=== PATIENT | female | born 1985 | race American Indian/Alaskan Native ===

== ENCOUNTER 2017-08-01 22:59 | Emergency (ER) | payer SELFPAY ==
[2017-08-01 23:46] VITALS: BP 113/73
--- NOTE | 2017-08-02 02:39 | Emergency Department Report ---
HPI - General Chief Complaint: Extremity Injury, Lower Time Seen by Provider: 08/02/17 02:26 - HPI HPI: Patient is a 31-year-old female with no prior medical history known to me who presents to ED complaining of left ankle swelling 2 days. Patient states yesterday she noticed her left ankle is swollen. Patient denies any trauma or injuries to the leg. Patient denies any ankle pain. Patient denies calf pain or difficulty walking. Patient's only states that ankle series appeared tight swelling. Patient states she is able to walk and has no loss of sensation to the ankle. She says she takes no medication and states she is not diabetic to her knowledge. She admits she is a nononsmoker. She denies fevers/chills/headache/blurred vision/chest pains or shortness of breath/dizziness. ED Past Medical Hx - Past Medical History Hx Hypertension: No Hx Congestive Heart Failure: No Hx Diabetes: No Hx Deep Vein Thrombosis: No Hx Renal Disease: No Hx Sickle Cell Disease: No Hx Seizures: No Hx Asthma: No Hx COPD: No Hx HIV: No - Surgical History Past Surgical History?: No - Social History Smoking Status: Never Smoker Substance Use Type: None - Medications Home Medications: Home Medications Medication Instructions Recorded Confirmed Last Taken Type Acetaminophen [Tylenol Arthritis] 650 mg PO TID #30 tablet.er 08/02/17 Unknown Rx ED Review of Systems ROS: Stated complaint: FOOT AND BACK PAIN Other details as noted in HPI Constitutional: denies: chills, fever Eyes: denies: eye pain, eye discharge, vision change ENT: denies: ear pain, throat pain Respiratory: denies: cough, shortness of breath, wheezing Cardiovascular: denies: chest pain, palpitations Endocrine: no symptoms reported Gastrointestinal: denies: abdominal pain, nausea, diarrhea Genitourinary: denies: urgency, dysuria, discharge Musculoskeletal: denies: back pain, joint swelling, arthralgia Skin: denies: rash, lesions Neurological: denies: headache, weakness, paresthesias Psychiatric: denies: anxiety, depression Hematological/Lymphatic: denies: easy bleeding, easy bruising Physical Exam - Physical Exam Vital Signs: Vital Signs 08/01/17 23:43 Temperature 98.3 F Pulse Rate 99 H Respiratory 20 Rate Blood Pressure 113/73 O2 Sat by Pulse 98 Oximetry Physical Exam: GENERAL: Alert and oriented x3, no apparent distress, Normal Gait, atraumatic. LUNGS: Symetrical with respiration, No wheezing, no rales or crackles, CTAB. HEART: S1, S2 present, regular rate and rhythm without murmur, no rubs, no gallops. Non tender to palpation EXTREMITIES/MUSCULOSKELETAL: No cyanosis, clubbing, rash, lesions or edema. Full ROM bilaterally.Pedal Pulses 1+ bilaterally. LE and UE 5+ strength bilaterally, straight leg raise negative bilaterally, Homans sign negative, no calf tenderness bilaterally. Ankle is nontender to palpation non-pitting edema , left anterior ankle mildly swollen. Appropriately warm to touch, not erythematous NEUROLOGIC: The patient is cooperative with no focal neurologic deficits. Cranial nerves II through XII are grossly intact. Normal speech. Normal sensation in bilateral upper and lower extremities, No loss of sensation, SKIN: Warm and dry, No lesions, No ulceration or induration present. ED Course Vital Signs 08/01/17 23:43 Temperature 98.3 F Pulse Rate 99 H Respiratory 20 Rate Blood Pressure 113/73 O2 Sat by Pulse 98 Oximetry ED Medical Decision Making - Medical Decision Making 31-year-old female presents with left ankle swollen. ED course: Left ankle is mildly swollen, nonpitting, non-erythematous, warm to touch and dry no lesions I discussed with the patient sometimes fluid pulled to the bottom of the legs. I discussed the patient to keep feet elevated and apply cold compresses the ankle. I discussed with patient compression socks to get them from [facility] pharmacy and rhythm. If needed. I discussed the patient follow up with her primary care physician to be tested for diabetes. Vital signs are normal patient is in no acute distress. She understands instructions given. I discussed the patient if any new symptoms or new symptoms arise such as pain, difficulty walking, tenderness, shortness of breath return to ED immediately. Critical care attestation.: If time is entered above; I have spent that time in minutes in the direct care of this critically ill patient, excluding procedure time. ED Disposition Clinical Impression: Left ankle swelling Disposition: DC-01 TO HOME OR SELFCARE Is pt being admited?: No Does the pt Need Aspirin: No Condition: Stable Instructions: Ankle Exercises (GEN), Arthralgia (ED) Additional Instructions: Make sure to follow up with the primary care physician as discussed. Take all your medications as you've been prescribed. If you have any worsening symptoms or develop new symptoms please return to ED immediately. Keep the ankle that elevated. Apply cold compresses to her ankle 3 times a day Prescriptions: Acetaminophen [Tylenol Arthritis] 650 mg PO TID #30 tablet.er Referrals: PRIMARY CARE, [Primary Care Provider] - 3-5 Days ISAURO BENNETT MD [Referring] - 3-5 Days [facility] Adult Care [Outside] - 3-5 Days [facility] [Outside] - 3-5 Days [facility] [Outside] - 3-5 Days Forms: Work/School Release Form(ED) Time of Disposition: 02:37
== END 2017-08-02 02:40 | disposition home or self-care (01) ==
LOC: ED 22:59
DX: M79.89 Other specified soft tissue disorders (principal)
CPT/HCPCS: 99282